=== PATIENT | male | born 1990 | race Caucasian/White ===

== ENCOUNTER 2023-09-22 03:27 | Emergency (ER) | payer OTHER ==
[~2023-09-22] VITALS: Ht 175.3 cm; Wt 86.2 kg
[2023-09-22] MEDS ORDERED: FLUORESCEIN SODIUM 1 MG STRIP ONE (04:03)
[2023-09-22] MEDS: FLUORESCEIN SODIUM 1 MG STRIP OP ONE (04:05)
[2023-09-22] MEDS: TETRACAINE HCL 0.5% OPHT DROP 2 ML BOTTLE OP ONE (04:07)
[2023-09-22 04:34] VITALS: BP 118/76; TEMP 98; O2SAT 97
== END 2023-09-22 04:41 | disposition home or self-care (01) ==
LOC: ER 03:44
DX: H53.8 Other visual disturbances (principal)
CPT/HCPCS: A4606; A4663

== ENCOUNTER 2024-05-24 19:15 | Emergency (ER) | payer BC, OTHER ==
[~2024-05-24] VITALS: Ht 175.3 cm; Wt 81.6 kg
[2024-05-24] MEDS ORDERED: MUCOUS RELIEF (20:03)
[2024-05-24] MEDS ORDERED: azithromycin (20:03)
[2024-05-24 20:22] LABS: BASOPHILS % (AUTO) 0.4 % (0.0-2.0); EOSINOPHILS % (AUTO) 0.4 % (0.0-7.0); HEMATOCRIT 46.4 % (36.7-47.1); HEMOGLOBIN 15.6 g/dL (12.5-16.3); LYMPHOCYTES # (AUTO) 1.4 K/uL (0.8-4.8); LYMPHOCYTES % (AUTO) 13.3 % (20.5-51.5); MEAN CORPUSCULAR HEMOGLOBIN 30.3 uug (23.8-33.4); MEAN CORPUSCULAR HGB CONC 34 g/dL (32.5-36.3); MONOCYTES # (AUTO) 0.7 K/uL (0.1-1.30); NEUTROPHILS # (AUTO) 8.2 K/uL (1.8-8.9); NEUTROPHILS % (AUTO) 78.9 % (38.5-71.5); PLATELET COUNT (AUTO) 203 K/uL (152-348); RED BLOOD CELL COUNT(AUTO) 5.16 MIL/uL (4.06-5.63); RED CELL DISTRIBUTION WIDTH 12.9 % (12.1-16.2); WHITE BLOOD COUNT (AUTO) 10.4 K/uL (3.6-10.2)
[2024-05-24 20:29] LABS: DIFFERENTIAL COMMENT 1
[2024-05-24 20:30] LABS: CALCIUM 8.4 mg/dL (8.5-10.1); CARBON DIOXIDE 27 mmol/L (21-32); CHLORIDE 102 mmol/L (98-107); GLUCOSE 105 mg/dL (74-106); POTASSIUM 3.7 mmol/L (3.5-5.1); SODIUM SERUM 138 mmol/L (136-145); UREA NITROGEN, BLOOD 13 mg/dL (7-18)
[2024-05-24 20:41] LABS: *MONOTEST NEGATIVE (NEGATIVE)
[2024-05-24 20:43] LABS: ALANINE AMINOTRANSFERASE 32 U/L (16-63); ALBUMIN 4.3 g/dL (3.4-5.0); ALKALINE PHOSPHATASE 61 U/L (50-136); ASPARTATE AMINOTRANSFERASE 16 U/L (15-37); BILIRUBIN,DIRECT 0.2 mg/dL (0.0-0.2); BILIRUBIN,TOTAL 1.1 mg/dL (0.2-1.0); TOTAL PROTEIN, SERUM 7.2 g/dL (6.4-8.2)
[2024-05-24 20:44] LABS: NT-PRO BNP < 5 pg/mL (0-125)
[2024-05-24] MEDS ORDERED: ASPIRIN 81 MG TAB.CHEW ONE (21:06)
[2024-05-24] MEDS: ASPIRIN 81 MG TAB.CHEW PO ONE (21:10)
[2024-05-24] MEDS: IV NORMAL SALINE 1000 ML BAG IV ONE (21:10)
[2024-05-24] MEDS: LORAZEPAM 2 MG/1 ML VIAL IV ONE (21:11)
[2024-05-24 23:52] VITALS: BP 132/81; O2SAT 99
== END 2024-05-24 23:53 | disposition home or self-care (01) ==
LOC: ER 19:15
DX: R07.89 Other chest pain (principal); R42 Dizziness and giddiness; R06.00 Dyspnea, unspecified; R05.3 Chronic cough; Z20.822 Contact with and (suspected) exposure to COVID-19
CPT/HCPCS: 99285; 96360; 71045; 87426; 80076; 80048; 83880; 85025; 85379; 86308; 86403; 87070; 84484 ×2; 36415; 93005; J7040; A4606; A4663